=== PATIENT | male | born 1985 | race Caucasian/White ===

== ENCOUNTER 2018-12-25 17:21 | Emergency (ER) | payer MEDICAID ==
[~2018-12-25] VITALS: Ht 185.4 cm; Wt 86.2 kg
[2018-12-25 17:37] VITALS: BP_SYST 141
--- NOTE | 2018-12-25 17:37 | NUR ---
Patient to ER bed 4 to gown for evaluation. Side rails up. Report given to Seamus ADAME.
--- NOTE | 2018-12-25 17:40 | NUR ---
Pt [facility] ED c[facility].Pt has worsening back pain since occurence x 2 wks.Pt not takimg meds at home for pain control.
--- NOTE | 2018-12-25 17:45 | NUR ---
LALA Carmen at bedside examining patient.
[2018-12-25] MEDS ORDERED: IBUPROFEN 800 MG TABLET PO ONE (18:00)
--- NOTE | 2018-12-25 18:30 | NUR ---
Patient transported to radiology via walked, accompanied by rad staff.
--- NOTE | 2018-12-25 18:40 | NUR ---
Returned from radiology, back to [facility].
[2018-12-25 18:44] LABS: BILIRUBIN,URINE NEGATIVE (NEGATIVE); BLOOD, URINE NEGATIVE (NEGATIVE); CLARITY/URINE CLEAR (CLEAR); COLOR,URINE YELLOW (YELLOW); GLUCOSE,URINE NEGATIVE (NEGATIVE); KETONES,URINE NEGATIVE (NEGATIVE); LEUKOCYTE ESTERASE ,URINE NEGATIVE (NEGATIVE); NITRITE, URINE NEGATIVE (NEGATIVE); PROTEIN URINE TRACE (NEGATIVE)
[2018-12-25 18:52] LABS: BACTERIA,URINE FEW /HPF (None Seen); MUCUS,URINE 2+ /LPF (None Seen); RBC,URINE 0-3 /HPF (0-3); WBC,URINE 0-3 /HPF (0-3)
[2018-12-25 19:24] VITALS: BP_SYST 138
--- NOTE | 2018-12-25 19:24 | NUR ---
Patient given written and verbal discharge instructions and verbalizes understanding. ER MD discussed with patient the results and treatment provided. Patient in stable condition. ID arm band removed. Rx of Motrin given. Patient educated on pain management and to follow up with PMD. Pain Scale 2/10 tolerable to patient. Opportunity for questions provided and answered. Medication side effect fact sheet provided.
== END 2018-12-25 19:24 | disposition home or self-care (01) ==
LOC: SED 17:21
DX: S39.012A Strain of muscle, fascia and tendon of lower back, initial encounter (principal); R03.0 Elevated blood-pressure reading, without diagnosis of hypertension; Y04.0XXA Assault by unarmed brawl or fight, initial encounter; Y93.89 Activity, other specified; Y92.89 Other specified places as the place of occurrence of the external cause; Y99.8 Other external cause status
CPT/HCPCS: 72100-TC; 81000-TC; 99284

== ENCOUNTER 2020-10-21 17:07 | Emergency (ER) | payer SELFPAY ==
[~2020-10-21] VITALS: Ht 182.9 cm; Wt 84.8 kg
[2020-10-21 17:10] VITALS: BP_SYST 153
[2020-10-21] MEDS ORDERED: IPRATROPIUM/ALBUTEROL SULFATE 3 ML AMPUL.NEB (DUONEB) ONE (17:25)
[2020-10-21] MEDS ORDERED: IPRATROPIUM/ALBUTEROL SULFATE 120 PUFFS/4 GM INH INH ONE (17:30)
[2020-10-21 17:39] LABS: BASOPHILS # (AUTO) 0.1 K/uL (0.0-0.2); BASOPHILS % (AUTO) 0.8 % (0.0-2.0); EOSINOPHILS # (AUTO) 0.3 K/uL (0.0-0.4); EOSINOPHILS % (AUTO) 3.3 % (0.0-4.0); HEMATOCRIT 39.3 % (36-54); HEMOGLOBIN 13.5 g/dL (14.0-18.0); LYMPHOCYTES # (AUTO) 3.5 K/uL (1.0-5.5); LYMPHOCYTES % (AUTO) 41.9 % (20.5-51.5); MEAN CORPUSCULAR HEMOGLOBIN 31 pg (27-31); MEAN CORPUSCULAR HGB CONC 34 % (32-36); MEAN CORPUSCULAR VOLUME 90 fL (79.0-98.0); MONOCYTES # (AUTO) 1.1 K/uL (0.0-1.0); MONOCYTES % (AUTO) 13.2 % (1.7-9.3); NEUTROPHILS # (AUTO) 3.4 K/uL (1.8-7.7); NEUTROPHILS % (AUTO) 40.8 % (40.0-70.0); PLATELET COUNT (AUTO) 310 K/uL (130-430); RED BLOOD CELL COUNT(AUTO) 4.39 MIL/uL (4.2-6.2); RED CELL DISTRIBUTION WIDTH 13.2 % (9.0-15.0); WHITE BLOOD COUNT (AUTO) 8.4 K/uL (4.8-10.8)
[2020-10-21] MEDS ORDERED: IPRATROPIUM/ALBUTEROL SULFATE 3 ML AMPUL.NEB (DUONEB) INH ONE (17:45)
[2020-10-21 17:51] LABS: CALCIUM 8.8 mg/dL (8.4-11.0); CREATININE 1.14 mg/dL (0.55-1.30); POTASSIUM 3.5 mmol/L (3.5-5.1)
[2020-10-21 18:02] LABS: ALBUMIN 3.7 g/dL (3.4-4.8); TOTAL BILIRUBIN 0.2 mg/dL (0.0-1.0)
[2020-10-21] MEDS ORDERED: LevALBUTEROL HCL 1.25 MG/0.5 ML *CONC.* VIAL.NEB (XOPENEX CONC.) INH ONE (18:30)
[2020-10-21] MEDS ORDERED: predniSONE 20 MG TABLET PO ONE (18:45)
[2020-10-21] MEDS ORDERED: PRED20TA PO (18:50)
[2020-10-21] MEDS ORDERED: ALBMDI INH (18:50)
[2020-10-21 19:48] VITALS: BP_SYST 122
== END 2020-10-21 19:48 | disposition home or self-care (01) ==
LOC: SED 17:07
DX: J98.01 Acute bronchospasm (principal)
CPT/HCPCS: 36415; 71045; 80053; 85025; 94640; 99284; J7512

== ENCOUNTER 2022-01-07 03:08 | Emergency (ER) | payer MEDICAID ==
[~2022-01-07] VITALS: Ht 185.4 cm; Wt 83.5 kg
[~2022-01-07 03:08] MED LIST: ALBMDI INH; PRED20TA PO
[2022-01-07 03:27] VITALS: BP_SYST 141
[2022-01-07] MEDS ORDERED: DIPHTH,PERTUSS(ACELL),TET VAC 0.5 ML VIAL (Tdap) I.M. ONE (05:00)
[2022-01-07] MEDS ORDERED: ED NON STOCK ORDER 1 EA MISC TP ONE (06:15)
[2022-01-07] MEDS ORDERED: BENZOIN TP ONE (06:15)
[2022-01-07] MEDS ORDERED: AMOXICILLIN 500 MG CAPSULE PO ONE (06:15)
[2022-01-07] MEDS ORDERED: AMOXICILLIN 500 MG CAPSULE ONE (06:18)
[2022-01-07] MEDS ORDERED: AMOX500C2 PO (06:20)
[2022-01-07 06:48] VITALS: BP_SYST 114
== END 2022-01-07 06:48 | disposition home or self-care (01) ==
LOC: SED 03:08
DX: S01.81XA Laceration without foreign body of other part of head, initial encounter (principal); Z79.899 Other long term (current) drug therapy; W23.1XXA Caught, crushed, jammed, or pinched between stationary objects, initial encounter; Y93.89 Activity, other specified; Y92.89 Other specified places as the place of occurrence of the external cause; Y99.8 Other external cause status
CPT/HCPCS: 90715; 99283; 99284

== ENCOUNTER 2023-04-12 18:34 | Emergency (ER) | payer MEDICAID ==
[~2023-04-12] VITALS: Ht 182.9 cm; Wt 84.8 kg
[~2023-04-12 18:34] MED LIST changes: +AMOX500C2 PO
[2023-04-12 18:35] VITALS: BP_SYST 133; PULSE 103; RESP 19; TEMP 98.2; O2SAT 100
[2023-04-12] MEDS ORDERED: OMEPRAZOLE Non-Formulary 20 MG CAPSULE.DR PO ONE (21:15)
[2023-04-12] MEDS ORDERED: IBUPROFEN 800 MG TABLET PO ONE (21:15)
[2023-04-12] MEDS ORDERED: PANTOPRAZOLE SODIUM 40 MG TAB PO ONE (21:15)
[2023-04-12 21:41] VITALS: BP_SYST 108; PULSE 90; RESP 18; TEMP 97.3; O2SAT 98
== END 2023-04-12 21:41 | disposition home or self-care (01) ==
LOC: SED 18:34
DX: T40.411A Poisoning by fentanyl or fentanyl analogs, accidental (unintentional), initial encounter (principal); Z79.899 Other long term (current) drug therapy; Y92.89 Other specified places as the place of occurrence of the external cause
CPT/HCPCS: 99283

== ENCOUNTER 2023-06-23 16:18 | Emergency (ER) | payer MEDICAID ==
[~2023-06-23] VITALS: Ht 182.9 cm; Wt 73.5 kg
[2023-06-23 16:28] VITALS: BP_SYST 132; PULSE 100; RESP 17; TEMP 98.4; O2SAT 100
[2023-06-23 16:58] LABS: BILIRUBIN,URINE NEGATIVE (NEGATIVE); BLOOD, URINE NEGATIVE (NEGATIVE); CLARITY/URINE CLEAR (CLEAR); COLOR,URINE YELLOW (YELLOW); GLUCOSE,URINE NEGATIVE (NEGATIVE); KETONES,URINE NEGATIVE (NEGATIVE); LEUKOCYTE ESTERASE ,URINE NEGATIVE (NEGATIVE); NITRITE, URINE NEGATIVE (NEGATIVE); PROTEIN URINE NEGATIVE (NEGATIVE)
[2023-06-23] MEDS ORDERED: IBUPROFEN 800 MG TABLET PO ONE (17:30)
[2023-06-23] MEDS ORDERED: HYDROcodone/ACETAMIN 7.5-325 MG TAB PO ONE (17:30)
[2023-06-23 18:47] LABS: BASOPHILS # (AUTO) 0.1 K/uL (0.0-0.2); BASOPHILS % (AUTO) 0.7 % (0.0-2.0); EOSINOPHILS # (AUTO) 0.2 K/uL (0.0-0.4); EOSINOPHILS % (AUTO) 3.1 % (0.0-4.0); HEMATOCRIT 38.4 % (36-54); HEMOGLOBIN 13.1 g/dL (14.0-18.0); LYMPHOCYTES % (AUTO) 37.8 % (20.5-51.5); MEAN CORPUSCULAR HEMOGLOBIN 30 pg (27-31); MEAN CORPUSCULAR HGB CONC 34 % (32-36); MEAN CORPUSCULAR VOLUME 89 fL (79.0-98.0); MONOCYTES # (AUTO) 0.8 K/uL (0.0-1.0); MONOCYTES % (AUTO) 10.2 % (1.7-9.3); NEUTROPHILS # (AUTO) 3.8 K/uL (1.8-7.7); NEUTROPHILS % (AUTO) 48.2 % (40.0-70.0); PLATELET COUNT (AUTO) 375 K/uL (130-430); RED BLOOD CELL COUNT(AUTO) 4.32 MIL/uL (4.2-6.2); RED CELL DISTRIBUTION WIDTH 13.7 % (9.0-15.0)
[2023-06-23 19:01] LABS: ERYTHROCYTE SEDIMENTATION RATE 8 MM/HR (0-15)
[2023-06-23 19:16] LABS: CALCIUM 9.2 mg/dL (8.4-11.0); CREATININE 0.77 mg/dL (0.55-1.30); POTASSIUM 4.1 mmol/L (3.5-5.1); PROTHROMBIN TIME 10.4 SECS (9.5-12.5)
[2023-06-23 19:29] LABS: URIC ACID 3.6 mg/dL (2.4-7.0)
[2023-06-23] MEDS ORDERED: TRAM50TA2 PO ×2 (19:29→19:48)
[2023-06-23] MEDS ORDERED: IBUP-1971 PO ×2 (19:29→19:48)
[2023-06-23 20:00] VITALS: BP_SYST 144; PULSE 88; RESP 18; TEMP 98.6; O2SAT 98
== END 2023-06-23 20:00 | disposition home or self-care (01) ==
LOC: SED 16:18
DX: M13.852 Other specified arthritis, left hip (principal); Q98.4 Klinefelter syndrome, unspecified; Z79.899 Other long term (current) drug therapy
CPT/HCPCS: 36415; 73502; 80048; 81001; 81003; 84550; 85025; 85610-TC; 85651-TC; 85730-TC; 99284

== ENCOUNTER 2023-09-29 18:01 | Emergency (ER) | payer MEDICAID ==
[~2023-09-29] VITALS: Ht 182.9 cm; Wt 84.8 kg
[~2023-09-29 18:01] MED LIST changes: +IBUP-1971 PO; +TRAM50TA2 PO
[2023-09-29 18:05] VITALS: BP_SYST 152; PULSE 89; RESP 22; TEMP 98.3; O2SAT 99
[2023-09-29] MEDS ORDERED: IBUP-1969 PO (18:33)
[2023-09-29] MEDS ORDERED: AMOX-520 PO (18:33)
[2023-09-29 19:35] VITALS: BP_SYST 152; PULSE 89; RESP 22; TEMP 98.3; O2SAT 99
== END 2023-09-29 19:35 | disposition home or self-care (01) ==
LOC: SED 18:01
DX: K04.7 Periapical abscess without sinus (principal); Z79.899 Other long term (current) drug therapy
CPT/HCPCS: 99283